=== PATIENT | female | born 1970 | race Caucasian/White ===

== ENCOUNTER → 2024-02-26 06:24 | Day surgery (SDC) | payer OTHER, SELFPAY | LOC: GI 06:24 | PROVIDERS: ATTENDING PHYSICIAN Internal Medicine Gastroenterology; FAMILY PHYSICIAN Nurse Practitioner Family | DX: K62.5 Hemorrhage of anus and rectum (principal); K64.9 Unspecified hemorrhoids; K57.30 Diverticulosis of large intestine without perforation or abscess without bleeding; K56.699 Other intestinal obstruction unspecified as to partial versus complete obstruction | CPT/HCPCS: 45378 ==

== ENCOUNTER → 2024-04-19 08:26 | Outpatient (REF) | payer OTHER, SELFPAY | LOC: HWRAD 08:26 | PROVIDERS: ATTENDING PHYSICIAN Internal Medicine Gastroenterology; FAMILY PHYSICIAN Nurse Practitioner Family | DX: Q43.8 Other specified congenital malformations of intestine (principal); K62.5 Hemorrhage of anus and rectum; K58.1 Irritable bowel syndrome with constipation | CPT/HCPCS: 74261 ==

== ENCOUNTER 2025-07-10 13:55 | Inpatient (IN) | payer OTHER, SELFPAY ==
[2025-07-10] VITALS (15 sets, daily range): BP systolic 121–174; BP diastolic 69–103; BMI 35.5; BMI 35.0
--- NOTE | 2025-07-10 04:50 | EDRN ---
Pt having pain middle of chest radiating into her back. Last time pt had this was mid April and her potassium was low and she was hospitalized in [place] for few days. Pt also has some numbness in her lips and extremities which also happened with
low potassium. Symptoms started Friday morning . Pt thinks she also had some symptoms on Wednesdays. Pt gets her zepbound injection on Wednesdays and remembers having similar symptoms and nausea however symptoms were not as bad as today. Pt
did not get her zepbound injection. Pt thought she might be dehydrated so she drank water yesterday and felt better. Symptoms got worse last night after a late dinner at [employer]. Pt says the intensity 'is just so bad, it hurts, I can't sit or lay.'
'it feels like there is something inside me that is pushing out my lower chest area and out my back.' Nausea, no vomiting. No fever/chills/cough urinary symptoms. Pt has epigastric pain. No diarrhea/constipation. Pt has weakness and dizziness.
[2025-07-10 05:18] LABS: Hematocrit 35.0 % (37.0-47.0); Hemoglobin 12.1 g/dL (12.0-16.0); Mean Corp Hgb Conc. 34.6 g/dL (33.0-37.0); Mean Corpuscular Volume 81.8 fL (81.0-99.0); Nucleated Red Blood Cells % 0 %; Platelet Count 333 10^3/uL (130-400); Red Cell Dist. Width 12.6 % (11.5-14.5)
[2025-07-10 05:43] LABS: ALT (SGPT) 15 U/L (0-35); AST (SGOT) 21 U/L (14-36); Albumin 4.3 g/dl (3.5-5.0); Alkaline Phosphatase 73 U/L (38-126); Blood Urea Nitrogen 7 mg/dl (7-17); Calcium 9.5 mg/dl (8.4-10.2); Carbon Dioxide 30 mmol/L (22-30); Chloride 100 mmol/L (98-107); Estimated Creatinine Clearance 118 ml/min; Glucose 125 mg/dl (70-99); Lipase 141 U/L (23-300); Magnesium 1.9 mg/dl (1.6-2.3); Potassium 2.9 mmol/L (3.5-5.1); Sodium 137 mmol/L (135-145); Total Protein 7.9 g/dl (6.3-8.2); eGFR > 60.00
[2025-07-10 05:53] LABS: Troponin I < 0.012 ng/ml
--- NOTE | 2025-07-10 06:18 | ED.GENMED ---
History of Present Illness
General
Chief Complaint: Numbness
Source: patient
Exam Limitations: none
Time Seen by Provider: 07/10/25 06:08
Nursing documentation reviewed up to this point in time: agreed with
History of Present Illness
History of Present Illness:
Note:
CHIEF COMPLAINT(S)
Severe tingling and pain radiating through body, numbness in face, extremities, and chest, historically associated with low potassium levels.
HISTORY OF PRESENT ILLNESS
The patient is a 55-year-old female presenting with severe tingling sensations in her feet, likened to the sensation experienced from electrical stimulation at a chiropractor. She reports radiating pain from her chest to her back, numbness in her
face, and extremities. She notes that this episode mimics a previous occurrence approximately two months ago when she was hospitalized at [facility] for hypokalemia (low potassium), which was reportedly around 2.9 mEq/L. During that
hospitalization, an initial electrocardiogram (EKG) showed a pause in heart rhythm, leading to her wearing a Holter monitor, though no further cardiac abnormalities were identified. In the past episode, potassium replacement intravenously
significantly alleviated her symptoms. The current symptoms evoke similar characteristics, and she reports her history of tingling sensations, chest pain, and associated numbness. Upon presentation, she describes eating and drinking normally but
expresses concern over these recurrent symptoms.
EXTERNAL RECORDS REVIEWED
The patient recalls her previous admission to [facility] for hypokalemia with an EKG abnormality that required further monitoring.
PHYSICAL EXAM
General: Alert, no acute distress.
Skin: Warm, dry.
Head: Normocephalic, atraumatic.
Neck: Supple, trachea midline.
Eye/Ears/Nose/Mouth/Throat: Oral mucosa moist.
Cardiovascular: Normal peripheral perfusion, No edema.
Respiratory: Respirations are non-labored.
Gastrointestinal: Abdomen nondistended.
Back: Normal range of motion, normal alignment.
Musculoskeletal: Normal range of motion, normal strength.
Neurological: Alert and oriented to person, place, time, and situation, No focal neurological deficit observed.
Psychiatric: Cooperative, appropriate mood and affect.
PLAN
1. Administer intravenous and oral potassium to correct hypokalemia promptly.
2. Monitor the patients potassium levels closely.
3. Perform an ultrasound as part of the diagnostic workup.
4. Educate the patient on the importance of monitoring and managing potassium levels.
DIFFERENTIAL DIAGNOSIS
The Differential Diagnosis includes, in no particular order and is not limited to:
1. Hypokalemia
2. Electrolyte imbalance
3. Cardiac arrhythmia
4. Peripheral neuropathy
5. Hypothyroidism
6. Anxiety or panic disorder
7. Multiple sclerosis
8. Hypocalcemia
9. Vitamin B12 deficiency
10. Myasthenia gravis
EKG
My independent EKG interpretation is:
- Rhythm: Sinus bradycardia
- Heart Rate: 85 beats per minute
- Notable Findings: Left ventricular hypertrophy (LVH)
- DC Interval: Not prolonged (non-DC)
- QRS Duration: Normal
- QT Interval: Normal
- Additional Observations: No ischemia observed
CARE-UPDATE
07/10/25 - 07:17
Patient remains symptomatic with epigastric pain; hypokalemia management initiated with both oral and IV potassium repletion. Awaiting formal radiology interpretation of the ultrasound to rule out any underlying acute changes. Decision made to admit
patient to hospitalist care for symptomatic management of hypokalemia.
Disposition:
SUMMARY OF ENCOUNTER
The patient presented to the emergency department with severe tingling sensations, pain radiating through the body, and numbness in the face, extremities, and chest. These symptoms were historically linked to low potassium levels, and the patient
had a similar hypokalemic episode two months ago. In the ED, hypokalemia management was initiated with intravenous and oral potassium repletion. The decision was made to admit the patient to hospice care for the management of symptomatic hypokalemia.
DISPOSITION
Admit to hospital for symptomatic management of hypokalemia.
ASSESSMENT
Hypokalemia with recurrent symptoms including severe tingling, pain, and numbness likely due to low potassium levels similar to previous episodes.
EMERGENCY TREATMENTS ADMINISTERED
- Intravenous potassium repletion
- Oral potassium supplementation
PLAN
1. Continue monitoring potassium levels closely.
2. Further evaluation by performing an ultrasound.
3. Educate the patient on the importance of maintaining adequate potassium levels and recognizing symptoms of hypokalemia for early intervention.
INDEPENDENT REVIEW OF LABS AND INTERPRETATION OF TESTS
My independent EKG interpretation is:
- Rhythm: Sinus bradycardia
- Heart Rate: 85 beats per minute
- Notable Findings: Left ventricular hypertrophy (LVH)
- DC Interval: Not prolonged
- QRS Duration: Normal
- QT Interval: Normal
- Additional Observations: No ischemia observed
MEDICATION RECONCILIATION
- Intravenous potassium
- Oral potassium supplements
MEDICAL DECISION MAKING
-Complexity of Data Reviewed: Chronic conditions affecting care including low potassium levels. Differential Diagnosis includes hypokalemia, electrolyte imbalance, cardiac arrhythmia, peripheral neuropathy, hypothyroidism, anxiety disorder, multiple
sclerosis, hypocalcemia, vitamin B12 deficiency, myasthenia gravis.
-Data:
Category 1
- Non-emergency department records reviewed: Previous hospitalization records from [facility] were reviewed for hypokalemia with EKG abnormalities.
Category 2
- My independent interpretation of EKG indicates sinus bradycardia and LVH.
-Risk:
Due to the critical nature of hypokalemia and associated symptoms, in-hospital monitoring with potassium repletion was deemed necessary to prevent complications and ensure safe and effective management.
DIAGNOSIS
1. Hypokalemia [E87.6]
2. 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
Past History
Past History
ED Past Medical History: Asthma and Fibromyalgia
Social History
Tobacco: Non-smoker
Living: with family
Employment: Employed
Phy Exam
Physical Exam
Physical Exam:
.
Course
Orders/Labs/Results
Orders:
Orders
07/10/25 04:43
Electrocardiogram (*1) Urgent
Reason for Study: Other
Other Reason for Exam: numbness
EKG- Treatment ONCE
07/10/25 05:05
Complete Blood Count/With Diff Urgent
Comprehensive Metabolic Panel Urgent
Lipase Urgent
Magnesium Urgent
Troponin I Urgent
07/10/25 06:17
Potassium Chloride 10% Elixir [KCl Elixir] 40 meq PO NOW STA
US Abdomen Complete/Upper Urgent
Comment:
Reason For Exam: epigastric pain
07/10/25 06:27
Potassium Chloride [KCl] 40 meq 0.9% Sodium Chloride 250 ml [Nss] 250 ml IV NOW
07/10/25 07:16
Ondansetron Injectable [Zofran] 4 mg .ROUTE .STK-MED ONE
Ondansetron Injectable [Zofran] 4 mg IV NOW STA
07/10/25 07:26
Morphine Sulfate 4 mg IV NOW STA
07/10/25 08:36
Admit/Transfer Patient As Directed
Co-Sign Provider:
Level of Care: Observation services
Assign to:: Telemetry
Physician / Group: brian montes
Diagnosis: Hypokalemia
Reason for Telemetry: Other
Other Reason for Telemetry: Hypokalemia
Date to Stop Telemetry: 07/12/25
Time to Stop Telemetry: 11:00
PRN Pain Medication Management As Directed
May give lesser potent ordered pain med per pt: Yes
preference::
Protocol:: Medication orders for pain may be administered in a
manner that supports deferring to patient preference
when the pt is:
- Requesting an ordered lesser potent pain medication.
Least to most potent pain medications are defined
as: acetaminophen < NSAID < tramadol < opioids
(morphine, oxycodone, hydromorphone).
- Requesting a lesser dose of the same medication IF
ORDERED.
- Requesting a less intrusive route of administration
if both routes are prescribed by the provider (PO <
IV).
07/10/25 08:38
Code Status As Directed
Resuscitation Status: Full Code
07/10/25 08:51
Ketorolac [Toradol] 30 mg IV Q6HPRN PRN
Morphine Sulfate 4 mg IV Q4HPRN PRN
07/12/25 11:00
DC Protocol for Telemetry ONCE
Abnormal Lab Results
07/10/25
05:05
Hct 35.0 L %
(37.0-47.0)
Potassium 2.9 L mmol/L
(3.5-5.1)
Glucose 125 H mg/dl
(70-99)
07/10/25 05:05
07/10/25 05:05
Vital Signs
Initial and Last Documented VS:
Initial Vital Signs
Temp Pulse Resp BP Pulse Ox
97.9 F 74 18 174/103 100
07/10/25 04:37 07/10/25 04:37 07/10/25 04:37 07/10/25 04:37 07/10/25 04:37
Last Documented Vital Signs
Temp Pulse Resp BP Pulse Ox
97.9 F 76 21 156/84 97
07/10/25 04:37 07/10/25 07:39 07/10/25 07:39 07/10/25 07:39 07/10/25 07:39
*Pulse Oximetry
SaO2: 100
Oxygen Mode of Delivery: Room air
Patient hypoxic: no
*Critical Care Note
Total Time (30-74mins, 75-104mins- exclusive of procedures): Not Applicable
Update Note
Update Note:
Pt with distended GB, cholelithiasis. Asked Dr. Miller to evaluate.
ED Attending Note
-
Portions of this chart may have been created with voice recognition software.� Occasional wrong word or��sound alike� substitutions may have occurred due to the inherent limitations of voice recognition software.
Discharge Plan
Departure
Patient Disposition: Admit
Date of Disposition: 07/10/25
Time of Disposition: 07:05
Admit to: Med/Surg
Presentation/result/management discussed w/ accepting MD/DO: Hospitalist
Patient with high blood pressure during this ER visit?: Yes
Condition: Good
Discharge Problem:
Acute hypokalemia, Paresthesia
Interventions
Interventions:
*Risk Screen - Suicide Last Done: 07/10/25 04:37
*General Assessment Last Done: 07/10/25 04:37
*Neglect/Abuse Screening Last Done: 07/10/25 04:37
*ED- Fall Risk Assessment Last Done: 07/10/25 05:09
ED- Neurological Assessment Last Done: 07/10/25 05:09
--- NOTE | 2025-07-10 06:19 | EDRN ---
Called pharmacy for iv potassium
[2025-07-10] MEDS: KCL ELIXIR 40 MEQ PO (06:26)
[2025-07-10] MEDS: ZOFRAN 4 MG IV (07:19)
[2025-07-10] MEDS: KCL 270 MEQ IV (07:24)
[2025-07-10] MEDS: MORPHINE SULFATE 4 MG IV ×2 (07:28→10:04)
--- NOTE | 2025-07-10 07:44 | HPS.HSE ---
Family Physician
-
Family Physician: Loren Barksdale PA-C
Chief Complaint
-
Abdominal pain
History of Present Illness
Patient is 55 years old with history of hypertension who came to the ER today with epigastric pain, numbness, associated with tingling in her feet, similar to previous event when she was having hypokalemia with potassium level of 2.9 and admitted to
[facility], initial blood work in the ER shows potassium level of 2.9.
Patient was started on IV potassium infusion and tingling improved but still complaining of epigastric pain, ultrasound abdomen shows distended gallbladder with cholelithiasis, lipase normal, epigastric pain radiates to the back and upper chest, CT
abdomen pelvis done which shows moderate to severe distended gallbladder, surgery team consulted.
Patient denies any recent fever or chills, admitted have nausea and vomiting in the ER, no chest pain or shortness of breath.
Patient will be admitted under hospitalist service.
Medical History
Past Medical History
Past Medical History: Reports Asthma, HTN and Other
Additional Past Medical History:
Fibromyalgia
Past Surgical History: Reports Other
Additional Past Surgical History:
colonoscopy
Social History
Tobacco: Non-smoker
Living: With Family
Employment: Employed
Family History
Family History: Not pertinent
Allergies / Home Medications
Allergies reflects when Allergies were last updated in [facility].
Home Medications with original date entered in [facility]
Allergy/Medication List:
Allergies
Allergy/AdvReac Type Severity Reaction Status Date / Time
clarithromycin (From Biaxin) Allergy Intermediate Swelling Verified 07/10/25 04:37
bee pollen Allergy Swelling Verified 07/10/25 04:37
chlorhexidine gluconate Allergy Rash Verified 07/10/25 04:37
(From Hibiclens)
clindamycin Allergy Rash Verified 07/10/25 04:37
ketoconazole (From Nizoral) Allergy Rash Verified 07/10/25 04:37
nystatin Allergy Rash Verified 07/10/25 04:37
seasonal Allergy Shortness Uncoded 11/25/16 13:38
of Breath
Home Medications
L.acid,brev,bulg,casei,parac,plan,saliv-B.anim 20 billion cell capsule (Probiotic-10) 1 cap PO DAILY 07/10/25
cholecalciferol (vitamin D3) 25 mcg (1,000 unit) capsule (Vitamin D3) 25 mcg PO DAILY 07/10/25
hydrochlorothiazide 25 mg tablet 25 mg PO DAILY 07/10/25
losartan 25 mg tablet 25 mg PO DAILY 07/10/25
multivitamin 1 tab PO DAILY 07/10/25
potassium 99 mg tablet 99 mg PO DAILY 07/10/25
tirzepatide (weight loss) 12.5 mg/0.5 mL subcutaneous pen injector (Zepbound) 12.5 mg SC QWEEK 07/10/25
Review of Systems
-
A 12 point ROS was completed and negative except as noted: Yes
Constitutional: Denies Fever, Weight Gain, Weight Loss, Fatigue or Sleep Disturbance
EENT: Denies Tearing, Sore Throat, Mouth Pain, Mouth Swelling or Runny Nose
Respiratory: Denies Cough, Hemoptysis or Trouble Breathing
Cardiac: Denies Chest Pain, Diaphoresis, Palpitations or Syncope
Abdomen/GI: Denies Abdominal Pain, Nausea, Vomiting, Diarrhea, Constipated, Bloody Stools or Black Stools
: Denies Dysuria, Frequency, Flank Pain, Incontinence, Difficulty Voiding, Urgency, Bleeding or Dark Urine
Musculoskeletal: Denies Joint Pain, Joint Swelling, Muscle Pain, Muscle Stiffness or Edema
Skin: Denies Itching or Rash
Neurological: Denies Dizzy, Headache, Weakness or Numbness
Endocrine: Denies Polyuria, Polydipsia or Temp Intolerance
Hematologic/Lymphatic: Denies Bleeding, Swollen Glands or Bruising
Psych: Reports Calm; Denies Depression, Anxiety or Panic Disorder
Physical Exam
Vital Signs
Vital Signs
Temp Pulse Resp BP Pulse Ox
97.9 F 76 21 156/84 97
07/10/25 04:37 07/10/25 07:39 07/10/25 07:39 07/10/25 07:39 07/10/25 07:39
Physical Exam
General: Well Developed, Well Nourished, No Apparent Distress, Comfortable and Good Appetite; No Pain, Chills or Sweats
HEENT: NormoCephalic, Moist mucous membranes, Atraumatic, Good Dentition, PERRLA, Nose Appears Normal and Ears Appear Normal
Respiratory: Clear
Cardiac: S1/S2 and Regular Rhythm
Breast: Deferred by me
GI: Soft, Non Distended, Normal Bowel Sounds and Tender (Gastric tenderness.)
Genito-urinary: Deferred by me
Musculoskeletal: No Clubbing, No Cyanosis and No Edema
Skin: Warm; No Rash, Jaundice, Ulcers, Lesions or Decubitus Ulcers
Neuro: Awake, Alert, Oriented, AO x 3, No Motor Deficits, Nonfocal/grossly intact and Cranial Nerves Intact
Hematologic/Lymphatic: No Lymphadenopathy
Psych: Calm
Laboratory Results
-
07/10/25 05:05
07/10/25 05:05
Laboratory Results
Total Bilirubin 0.6 mg/dl (0.2-1.3) 07/10/25 05:05
AST 21 U/L (14-36) 07/10/25 05:05
ALT 15 U/L (0-35) 07/10/25 05:05
Alkaline Phosphatase 73 U/L (38-126) 07/10/25 05:05
Troponin I < 0.012 ng/ml 07/10/25 05:05
Lipase 141 U/L (23-300) 07/10/25 05:05
Data Reviewed
-
Diagnostic Radiology: Report Reviewed by me
CT Scan: Report Reviewed by me
Medical Tests (Nuc Med, Echo, EKG etc): Report Reviewed by me
Lab Data: Labs Reviewed by me
Old Records: Reviewed
Impression/Plan
-
Impression:
Patient is 55 years old with history of hypertension who came to the ER today with epigastric pain, numbness, associated with tingling in her feet, similar to previous event when she was having hypokalemia with potassium level of 2.9 and admitted to
[facility], initial blood work in the ER shows potassium level of 2.9.
Patient was started on IV potassium infusion and tingling improved but still complaining of epigastric pain, ultrasound abdomen shows distended gallbladder with cholelithiasis, lipase normal, epigastric pain radiates to the back and upper chest, CT
abdomen pelvis done which shows moderate to severe distended gallbladder, surgery team consulted.
Assessment/plan:
Epigastric pain.
Radiate to the back.
With ultrasound and CT scan findings shows severely distended gallbladder.
Also ultrasound shows cholelithiasis
Normal LFTs.
Normal lipase
Surgery team consulted.
IV fluid.
Clear liquid diet for now
Pain and nausea control
Hypokalemia
Replaced in the ER
Hold HTCZ
Continue to monitor
Essential hypertension
Hold hydrochlorothiazide
Continue losartan.
Add low-dose
CODE STATUS: Full code
DVT prophylaxis: Lovenox
Diet: Cardiac diet.
Disposition.
Surgery consult
Total time spent on today's encounter was 75 minutes which included time spent in counseling the patient/family regarding diagnosis and treatment plan as listed above, goals of care, and symptom management. Case was discussed with nursing staff,
specialists, and care coordinators/case management. All labs and imaging personally reviewed by me. Remainder the time spent in detailed review of previous records, lab data, imaging, and other medical provider documentation.
--- NOTE | 2025-07-10 09:16 | CM ---
CM reviewed chart and met with pt bedside in ED. Lives with her and son in 2 story home, [address]. Has first floor half BA, full flight to second floor BR/full BA.
Independent in ADLs, personal care and ambulation at baseline. No assistive devices, no DME
No hx VN or SNF
OBS form reviewed and signed.
PCP: Loren Barksdale
Pharmacy: [facility] [address] [place] [address]
Anticipate discharge home, CM will continue to follow.
[2025-07-10] MEDS: BENADRYL 25 MG IV (10:04)
[2025-07-10] MEDS: PROTONIX IV 40 MG IV (10:04)
[2025-07-10] MEDS: NSS (PRESERVATIVE FREE) 10 ML IV (10:04)
--- NOTE | 2025-07-10 10:20 | EDRN ---
Patient went for a CT with IV contrast. Patient came back with hives on her face. Patient denies chest pain and SOB. Lung sounds are clear and VSS are stable. Dr. Israel and hospitalist made aware.
[2025-07-10] MEDS: DECADRON 4 MG IV (10:32)
[2025-07-10] MEDS: TORADOL 30 MG IV (12:36)
--- NOTE | 2025-07-10 12:37 | CON.GS ---
Addendum entered and electronically signed by Delmer Miller MD 07/10/25 13:07:
I saw and examined the patient.
The APPLICATION SUPPORT's note was reviewed and I agree with the note.
Comment: recurrent abd pain with radiation to back. denies changes to stool/urine. zepbound. concurrent recurrent symptomatic hypokalemia. LFTs WNL. No leukocytosis. Imaging c/w acute biliary colic with stones. Plan for CCY when K normalized. Added
on for tomorrow. NPO @ MN
Original Note:
Consultation
-
Date/Time Consultation Performed: 07/10/25 1145
Medical History
-
Chief Complaint: epigastric pain
History of Present Illness:
55 yo female with a h/o obesity on Zepbound x8 month with about 50lb weight loss and who presents through the ED with epigastric pain with nausea and vomiting with numbness and tingling to her face and lower extremities. She reports the
pain begins in the front of her abdomen and radiates into her back. She has had intermittent episodes of similar pain over the past few months although much more mild and quick to resolve. This episode began on Friday with nausea and vomiting
which initially improved but returned yesterday and was more severe. Today, she began to have numbness and tingling ascending up her face which was similar to an episode 2 months ago where she presented to [facility] and was admitted for
correction of potassium. This sensation is resolving with administration of potassium riders, but the abdominal discomfort persists. She denies n/v currently. She denies fevers or chills. She reports generally feeling unwell. She does note
intermittent constipation since starting Zepbound and this is unchanged. On exam, there is marked tenderness to the right abdomen.
Past Medical History
Past Medical History: HTN and Other (Obesity on Zepbound, fibromyalgia)
Past Surgical History: and Other (colonoscopy 02/26/24: diverticulosis )
Social History
Tobacco: Non-Smoker
Living: With Family
Family History
Family History: Reviewed & Not Pertinent
Allergies / Home Medications
Allergy/AdvReac Type Severity Reaction Status Date / Time
clarithromycin (From Biaxin) Allergy Intermediate Swelling Verified 07/10/25 04:37
bee pollen Allergy Swelling Verified 07/10/25 04:37
chlorhexidine gluconate Allergy Rash Verified 07/10/25 04:37
(From Hibiclens)
clindamycin Allergy Rash Verified 07/10/25 04:37
Iodinated Contrast Media Allergy Hives Verified 07/10/25 10:20
ketoconazole (From Nizoral) Allergy Rash Verified 07/10/25 04:37
nystatin Allergy Rash Verified 07/10/25 04:37
seasonal Allergy Shortness Uncoded 11/25/16 13:38
of Breath
�Medication �Instructions �Recorded �Confirmed �Type
Lactobac no.2-Bifidobac no.1-S. 1 cap PO DAILY 07/10/25 07/10/25 History
thermo 112.5 billion cell capsule
(Visbiome)
acetaminophen 500 mg tablet 1,000 mg PO DAILYPRN PRN mild pain 07/10/25 07/10/25 History
cholecalciferol (vitamin D3) 25 25 mcg PO DAILY 07/10/25 07/10/25 History
mcg (1,000 unit) capsule (Vitamin
D3)
hydrochlorothiazide 25 mg tablet 25 mg PO DAILY 07/10/25 07/10/25 History
losartan 25 mg tablet 25 mg PO DAILY 07/10/25 07/10/25 History
potassium gluconate 600 mg (99 mg) 600 mg PO DAILY 07/10/25 07/10/25 History
tablet
therapeutic multivitamin 1 tab PO DAILY 07/10/25 07/10/25 History
tirzepatide (weight loss) 12.5 12.5 mg SC WE 07/10/25 07/10/25 History
mg/0.5 mL subcutaneous pen
injector (Zepbound)
Review of Systems
-
History Source: Patient and Family
All other systems: Negative unless noted
A 10 point review of systems was completed, and was negative except as per HPI.
Physical Exam
Vital Signs
Temp Pulse Resp BP Pulse Ox
98.3 F 78 17 158/82 100
07/10/25 10:11 07/10/25 10:11 07/10/25 10:11 07/10/25 10:11 07/10/25 10:11
07/09/25 07/10/25 07/11/25
06:59 06:59 06:59
Actual Weight 106 kg
Body Mass Index (BMI) 35.5
Lab Results
07/10/25 05:05
WBC 7.1 10^3/uL (4.8-10.8) 07/10/25 05:05
Hgb 12.1 g/dL (12.0-16.0) 07/10/25 05:05
Hct 35.0 % (37.0-47.0) L 07/10/25 05:05
Plt Count 333 10^3/uL (130-400) 07/10/25 05:05
Abs Immat Gran (auto) 0.0 10^3/uL (0-0.05) 07/10/25 05:05
Neutrophils % 57.5 % (42.2-75.2) 07/10/25 05:05
Physical Exam
General: Well Developed; Negative Comfortable
HEENT: Normocephalic; Negative Scleral Icterus
Respiratory: Non Labored Respirations
GI: Soft, Non Distended, Tender (right abdomen) and Obese
Skin: Warm and Dry
Neuro: Awake, Alert and AO x 3
Psych: Calm
Data Reviewed
-
CT Scan: Image Personally Visualized and interpreted, Report Reviewed by me, Discussed with Physician, Discussed with Patient and Discussed with Family
Ultrasound: Image Personally Visualized and interpreted, Report Reviewed by me, Discussed with Physician and Discussed with Patient
Labs: Labs Reviewed by me, Discussed with Physician, Discussed with Patient and Discussed with Family
Old Records: Reviewed
Assessment / Plan
-
55 yo female on Zepbound x8 month with about 50lb weight lbs with intermittent biliary colic symptoms presenting with persistent epigastric pain with severe right abd tenderness as well as intermittent n/v. No leukocytosis present. LFTs WNL. Severe
hypokalemia present, symptomatic with tingling sensation in extremities/face but improving with k-riders. Afebrile. Stable vital signs. Cholelithiasis present on US with gallbladder distention noted. CT confirms these findings, nl appearing
appendix. Significant tenderness present to the right abdomen which is concerning for developing acute calculous cholecystitis.
Plan:
Ok for clears today, NPO after MN
OR tomorrow for lap jorge
Correct potassium, will check mag and k later today. Will need to correct hypokalemia prior to receiving anesthesia.
Start IV Zosyn for empiric abx coverage of cholecystitis
Analgesics/antiemetics
Medical management as per primary team
[2025-07-10] MEDS: COZAAR 25 MG PO (13:14)
[2025-07-10] MEDS: NORVASC 5 MG PO (13:15)
[2025-07-10] MEDS: VISBIOME 1 CAP PO (13:15)
[2025-07-10] MEDS: ZOSYN 50 IV ×3 (13:15→23:02)
--- NOTE | 2025-07-10 14:00 | PTCARENOTE ---
07/10- Patient transferred and oriented to unit without issue. AAOX3, Teley currently NSR. Pt c/o generalized malaise feeling, loss of appetite but current abdominal pain is 5/10. She understands her pain management medications but currently
denies need for them. No other current complaints.
[2025-07-10] MEDS: NSS 1000 IV ×2 (14:12→23:02)
[2025-07-10] MEDS: LOVENOX 40 MG SC (17:02)
[2025-07-10 21:08] LABS: Blood Urea Nitrogen 7 mg/dl (7-17); Calcium 9.1 mg/dl (8.4-10.2); Carbon Dioxide 28 mmol/L (22-30); Chloride 105 mmol/L (98-107); Estimated Creatinine Clearance 118 ml/min; Glucose 137 mg/dl (70-99); Potassium 4.0 mmol/L (3.5-5.1); Sodium 140 mmol/L (135-145); eGFR > 60.00
[2025-07-11] VITALS (14 sets, daily range): BP systolic 99–137; BP diastolic 52–73
[2025-07-11] MEDS: ZOSYN 50 IV ×3 (05:02→23:05)
[2025-07-11] MEDS: MORPHINE SULFATE 4 MG IV ×3 (06:04→21:44)
[2025-07-11 06:07] LABS: Hematocrit 36.2 % (37.0-47.0); Hemoglobin 12.3 g/dL (12.0-16.0); Mean Corp Hgb Conc. 34.0 g/dL (33.0-37.0); Mean Corpuscular Volume 83.0 fL (81.0-99.0); Platelet Count 337 10^3/uL (130-400); Red Cell Dist. Width 13.0 % (11.5-14.5)
[2025-07-11 06:31] LABS: Estimated Creatinine Clearance > 125 ml/min; eGFR > 60.00
[2025-07-11 06:44] LABS: Blood Urea Nitrogen 5 mg/dl (7-17); Calcium 9.0 mg/dl (8.4-10.2); Carbon Dioxide 27 mmol/L (22-30); Chloride 107 mmol/L (98-107); Glucose 118 mg/dl (70-99); Magnesium 2.0 mg/dl (1.6-2.3); Potassium 4.0 mmol/L (3.5-5.1); Sodium 141 mmol/L (135-145)
[2025-07-11] MEDS: COZAAR 25 MG PO (07:06)
[2025-07-11] MEDS: THERAGRAN 1 TABLET PO (07:06)
[2025-07-11] MEDS: VISBIOME 1 CAP PO (07:06)
[2025-07-11] MEDS: NORVASC 5 MG PO (07:06)
[2025-07-11] MEDS: VITAMIN D3 (cholecalciferol) 25 MCG PO (07:06)
[2025-07-11 07:12] LABS: Lipase 75 U/L (23-300)
--- NOTE | 2025-07-11 07:18 | W.PN.HOSP.TC ---
Today's Communication/Plan
-
Lap jorge today
Monitor overnight
Plan for discharge tomorrow
Assessment / Plan
Assessment / Plan
Physical Exam
General: Not in acute distress
HEENT: Normocephalic, Moist mucous membranes
Respiratory: Clear to Auscultation Bilaterally
Cardiac: S1/S2 and Regular Rhythm
GI: Soft, Non Distended, Normal Bowel Sounds and Tender (Epigastric tenderness)
Musculoskeletal: No Cyanosis and No Edema
Skin: Warm. Dry.
Neuro: Awake, Alert, Oriented, AO x 3, No Motor Deficits, Nonfocal/grossly intact and Cranial Nerves Intact
Psych: Calm
Assessment/Plan
55 years old female with past medical history of hypertension who came to the emergency room with epigastric pain, numbness, associated with tingling in her feet, similar to previous event when she was having hypokalemia with potassium level of 2.9
and admitted to [facility], initial blood work in the ER showed potassium level of 2.9. Patient was started on IV potassium infusion and tingling improved but she then still complained of epigastric pain, ultrasound abdomen showed distended
gallbladder with cholelithiasis, lipase normal, epigastric pain radiates to the back and upper chest, CT abdomen pelvis was done, showing moderate to severe distended gallbladder, surgery team consulted. Patient denied any recent fever or chills,
admitted to have nausea and vomiting in the ER, no chest pain or shortness of breath.
Epigastric pain.
Radiate to the back.
With ultrasound and CT scan findings shows severely distended gallbladder.
Also ultrasound shows cholelithiasis
Normal LFTs.
Normal lipase
Surgery team consulted.
IV fluid.
Surgery with lap jorge and liver biopsy on 07/11/25 -- solid diet as tolerated after the surgery
Pain and nausea control
Continue antibiotics perioperatively -- but can stop on discharge
Hypokalemia
Replaced in the ER
Hold HCTZ
Continue to monitor
Essential hypertension
Hold hydrochlorothiazide
Continue losartan.
Amlodipine
CODE STATUS: Full code
DVT prophylaxis: Lovenox
Diet: Cardiac diet.
Anticipated Discharge: Within 24 hours
Subjective/Interval History
-
Date of Service: July 11, 2025
Patient was seen and examined. She reported similar abdominal pain as before, denied any other new symptoms or complaints.
Objective Data
-
Labs:
Laboratory Results
07/10/25 07/11/25
20:41 05:18
WBC 10.1
Hgb 12.3
Hct 36.2 L
Plt Count 337
Sodium 140 141
Potassium 4.0 D 4.0
Chloride 105 107
Carbon Dioxide 28 27
BUN 7 5 L
Creatinine 0.7 0.6
Glucose 137 H 118 H
Calcium 9.1 9.0
Vital Signs:
Vital Signs
Temp Pulse Resp BP Pulse Ox
98.1 F 64 16 134/70 99
07/11/25 02:56 07/11/25 02:56 07/11/25 02:56 07/11/25 02:56 07/11/25 02:56
I&O
07/10/25 07/11/25 07/12/25
06:59 06:59 06:59
Intake Total 800 / 800
Balance 800 / 800
[2025-07-11 10:00] LABS: Urine Character Clear (Clear)
[2025-07-11 10:21] LABS: Urine Squamous Cell >30 /LPF (Few)
[2025-07-11 10:22] LABS: Urine Red Blood Cell 0-2 /HPF (0-2)
[2025-07-11] MEDS: NSS IV (11:54)
[2025-07-11] MEDS: ZOSYN IV (11:54)
--- NOTE | 2025-07-11 13:12 | W.SUR.PREOP ---
Pre-Operative Surgical Note
-
I have examined this patient prior to the performance of the scheduled procedure.
The patient's condition is unchanged from the time of the current History and
Physical and the patient is able to undergo the scheduled procedure.
--- NOTE | 2025-07-11 14:54 | W.IMMPOSTOP ---
Surgical Immed Post Op Note
-
Primary Surgeon: Dale Bhatia MD
Assisting Surgeon: None
Pre-op Diagnosis: Acute cholecystitis
Post-op Diagnosis: Gangrenous cholecystitis, choledocholithiasis, fatty liver disease
Procedure Performed:
1. Laparoscopic cholecystectomy with cholangiogram
2. Laparoscopic transcystic common bile duct exploration
3. Liver biopsy
Anesthesia Type: General
Specimen / Cultures:
1. Gallbladder and contents
2. Liver biopsy
Estimated Blood Loss: 23 cc
Complications: None
Operative Findings: Gangrenous distended gallbladder containing small cholesterol gallstones visualized but none spilled. After achieving a critical view of safety a intraoperative cholangiogram was performed which demonstrated a distal filling
defect which persisted after 1 mg of glucagon was administered so a transcystic common bile duct exploration was performed advancing the stone into the small intestine successfully. A completion cholangiogram showed resolution of the filling
defect. The liver appeared consistent with fatty liver disease and a associate financial representative liver biopsy was taken from segment 4B.
POST OP PLAN:
Imaging: None
Labs: Routine AM
Diet: Regular diet
Analgesia: Tylenol 650mg q6 Rayna, Dilaudid 0.5mg q2h PRN
Neuro/vascular checks: Per unit protocol
AC/AP: Hold Therapeutic AC, Ok for DVT PPx
Activity: Ad Sasha
Wound/Incisions/Drains: Routine
Abx: Continue antibiotics perioperatively, can stop on discharge.
Dispo: RNF, anticipate discharge home tomorrow
[2025-07-11] MEDS: DILAUDID 0.25 MG IV (15:37)
[2025-07-11] MEDS: LOVENOX SC (16:17)
--- NOTE | 2025-07-11 16:17 | PTCARENOTE ---
07/11- Patient returned to unit from OR without issue. 5 fully approximated lappy sites on abdomen. All Surrounding Skin CDI. Telemetry #45 reapplied- currently NSR. Patient currently c/o 04/26 sore abdominal pain. Administered PRN pain
medication as ordered.
[2025-07-11] MEDS: BENADRYL 25 MG PO (23:28)
[2025-07-12 03:09] VITALS: BP 108/52
[2025-07-12] MEDS: ZOSYN 50 IV ×4 (05:01→23:05)
[2025-07-12] MEDS: VISBIOME 1 CAP PO (07:50)
[2025-07-12] MEDS: VITAMIN D3 (cholecalciferol) 25 MCG PO (07:50)
[2025-07-12] MEDS: THERAGRAN 1 TABLET PO (07:50)
[2025-07-12] MEDS: NORVASC 5 MG PO (07:50)
[2025-07-12] MEDS: COZAAR 25 MG PO (07:50)
[2025-07-12 08:12] LABS: Hematocrit 32.0 % (37.0-47.0); Hemoglobin 10.7 g/dL (12.0-16.0); Mean Corp Hgb Conc. 33.4 g/dL (33.0-37.0); Mean Corpuscular Volume 85.8 fL (81.0-99.0); Nucleated Red Blood Cells % 0 %; Platelet Count 303 10^3/uL (130-400); Red Cell Dist. Width 13.4 % (11.5-14.5)
[2025-07-12 08:19] VITALS: BP 111/60
--- NOTE | 2025-07-12 08:31 | W.PN.GS2 ---
Today's Communication / Plan
-
Dispo planning
Assessment / Plan
-
This is a 55-year-old female postoperative day 1 from a laparoscopic cholecystectomy and LTCBDE for acute gangrenous cholecystitis, choledocholithiasis and fatty liver disease. Doing well, expected postoperative course.
Okay for DC this morning from a surgery perspective.
Discharge instructions updated, meds sent
Time Spent
Total Time Spent with Patient (in minutes): 10
Subjective Data
-
Date of Service: July 12, 2025
Interval Events:
No acute events overnight. Slept well. Pain Controlled. Denies Nausea/Vomiting. Tolerating diet.
Objective Data
-
Intake and Output
07/11/25 07/12/25 07/13/25
06:59 06:59 06:59
Intake Total 800 / 800 940 / 940
Balance 800 / 800 940 / 940
Intake:
Oral fluids 400 / 400 840 / 840
IV fluids (Total) 300 / 300 100 / 100
Normosal 100 / 100
IV piggybacks 100 / 100
Other:
Number of approximated MODERATE 1 3
amounts of urine
Vital Signs
Temp Pulse Resp BP Pulse Ox
98.6 F 61 16 111/60 100
07/12/25 08:19 07/12/25 08:19 07/12/25 08:19 07/12/25 08:19 07/12/25 08:19
Lab Results
07/12/25 07:06
Calcium 9.0 mg/dl (8.4-10.2) 07/11/25 05:18
Magnesium 2.0 mg/dl (1.6-2.3) 07/11/25 05:18
Total Bilirubin 0.6 mg/dl (0.2-1.3) 07/10/25 05:05
AST 21 U/L (14-36) 07/10/25 05:05
ALT 15 U/L (0-35) 07/10/25 05:05
Alkaline Phosphatase 73 U/L (38-126) 07/10/25 05:05
Total Protein 7.9 g/dl (6.3-8.2) 07/10/25 05:05
Albumin 4.3 g/dl (3.5-5.0) 07/10/25 05:05
Physical Exam
-
GENERAL/NEURO: Awake, Alert, no distress
CHEST: Unlabored breathing on RA
ABDOMEN: Soft, Non-Tender, Non-Distended, incisions clean dry and intact
Patient has a fuentes catheter: No
Patient has a central line: No
[2025-07-12 08:48] LABS: ALT (SGPT) 247 U/L (0-35); AST (SGOT) 176 U/L (14-36); Albumin 3.3 g/dl (3.5-5.0); Alkaline Phosphatase 181 U/L (38-126); Blood Urea Nitrogen 6 mg/dl (7-17); Calcium 8.7 mg/dl (8.4-10.2); Carbon Dioxide 29 mmol/L (22-30); Chloride 107 mmol/L (98-107); Estimated Creatinine Clearance 118 ml/min; Glucose 122 mg/dl (70-99); Magnesium 2.1 mg/dl (1.6-2.3); Potassium 4.0 mmol/L (3.5-5.1); Sodium 139 mmol/L (135-145); Total Protein 6.3 g/dl (6.3-8.2); eGFR > 60.00
--- NOTE | 2025-07-12 08:50 | PN.CDI ---
CDI
- -
CDI:
Physician Documentation Request
Admit Date: 07/10/25 13:55
Dear Doctor Sriram,
Patient admitted for cholecystitis.
07/11 Immediate post-op report: 'intraoperative cholangiogram was performed which demonstrated a distal filling defect which persisted after 1 mg of glucagon was administered so a transcystic common bile duct exploration was performed advancing the
stone into the small intestine successfully. A completion cholangiogram showed resolution of the filling defect.'
Based on the above, could you clarify in the progress notes, the appropriate diagnosis, if significant, that supports the above abnormalities and additional evaluation, monitoring and/or treatment rendered:
Common bile duct obstruction
Common bile duct filling defect
Other
Use of terms such as suspected, likely, concern for, or probable (associated with a specific diagnosis that is being evaluated, monitored, or treated as if it exists) are acceptable and can be coded in the inpatient setting, when documented at the
time of discharge.
Thank you,
Katelyn Street RN, BSN
CDI Specialist
Avilable via [place] text
Please use your independent medical judgment in providing your response.
--- NOTE | 2025-07-12 09:16 | OR.RPT ---
Operative Report
Operative Report
Patient Name: Ray Ray
: 03/19/1968
Date of Operation: 07/11/2025
Preoperative Diagnosis: Acute cholecystitis
Postoperative Diagnosis: Gangrenous cholecystitis, choledocholithiasis, fatty liver disease
Procedure(s):
1. Laparoscopic cholecystectomy with cholangiogram
2. Laparoscopic transcystic common bile duct exploration
3. Liver biopsy
Surgeon(s):
Dr. Bhatia
Marketing Communication Manager(s):
AL Velasquez
Anesthesia: General
Estimated Blood Loss: 23 cc
Urine Output: None
Drains/Lines/Implants:None
Specimens:
1. Gallbladder and contents
2. Liver biopsy
HPI/Surgical Indications:
This is a 55-year-old female with a history of obesity on Zepbound, who presents to the ED with epigastric pain nausea and vomiting and pain radiating to her back. Exam, labs and imaging are consistent with acute cholecystitis.
Risks/Benefits/Alternatives were discussed at length, and the patient agreed to proceed with surgery.
Operative Findings: Gangrenous distended gallbladder containing small cholesterol gallstones visualized but none spilled. After achieving a critical view of safety a intraoperative cholangiogram was performed which demonstrated a distal common bile
duct filling defect consistent with a gallstone. This common bile duct obstruction persisted after 1 mg of glucagon was administered so a transcystic common bile duct exploration was performed advancing the stone into the small intestine
successfully. A completion cholangiogram showed resolution of the filling defect. The liver appeared consistent with fatty liver disease and a lead generation representative liver biopsy was taken from segment 4B.
Procedure Description:
The patient was brought to the Operating Room and placed in the supine position with one arm tucked. Following uneventful induction of general endotracheal anesthesia, an orogastric tube was placed. The abdomen was prepped and draped in the usual
sterile fashion. A timeout was performed confirming the procedure, consent, and that IV antibiotics were infused and sequential compression devices were confirmed to be on. The abdomen was entered using a left subcostal Veress technique which
required a single pass followed by a 5 mm right upper quadrant Optiview trocar. Pneumoperitoneum to 15 mmHg pressure was obtained without difficulty and we confirmed that no injury had occurred during our entry. The patient was positioned in
reverse Trendelenberg and rotated with the right side up slightly. Two 5 mm trocars were then placed along the right subcostal margin, followed by a 12 mm port in the epigastrium. The gallbladder was distended and gangrenous so was emptied using a
decompressing needle through the fundus of the gallbladder with evacuation of hydrops before A locking grasping forceps was placed on the fundus of the gallbladder where it was then retracted cephalad and to the right. Using appropriate grasping
instruments, the peritoneum overlying the triangle of Calot was incised and extended superiorly on both the anterior and posterior gallbladder sullivan. The liver was quite large with the left lobe of the liver flopping over the cystic triangle which
made visualization somewhat difficult. The infundibulum was dissected off the cystic plate. The cystic triangle was dissected until a critical view of safety was achieved. The cystic artery was medialized, dissected and controlled with 2 proximal
clips and 1 distal. The cystic duct/gallbladder junction in turn was identified, dissected circumferentially and a clip was placed. A ductotomy was made and a cholangiocatheter on an Pierre clamp was inserted into the cystic duct. A C-arm was draped
and brought into the field. An intra-operative cholangiogram was performed and was noted to have:
A filling defect in the distal common bile duct which persisted after administration of 1 mg of glucagon and allowing 2 minutes for this to take effect. Under fluoroscopic guidance a laparoscopic transcystic common bile duct exploration was
performed by advancing the cholangiocatheter through the sphincter and dilating it. Using a 'snowplow' maneuver the stone was carefully advanced into the duodenum. A completion cholangiogram showed resolution of the filling defect/obstruction of
the common bile duct.
There was no significant biliary dilation
Brisk flow of contrast into the duodenum on completion cholangiogram
Normal biliary anatomy
The catheter was then removed and the cystic duct was controlled with a clip followed by 0 PDS Endoloop. After ensuring both the artery and duct were divided, the gallbladder was freed from the liver using electrocautery. There was some spillage
of bile, but no spillage of stones. The gallbladder bed was inspected and excellent hemostasis was obtained. The gallbladder was extracted through the 12 mm trocar site using an endocatch bag. The abdomen was again irrigated and excellent
hemostasis was assured. All remaining trocars were then removed and the pneumoperitoneum was evacuated. The 12 mm trocar site was closed using 0 PDS suture. All trocar sites were closed at the skin level using 4-0 Monocryl followed by Dermabond.
Overall, the patient tolerated the procedure well and was taken to the Recovery Room postoperatively in stable condition.
I was the attending physician and performed the procedure with assistance from the WELDING MACHINE SETTER above. I was present for all portions of the case, excluding skin closure.
Dale Bhatia MD
--- NOTE | 2025-07-12 11:03 | W.PN.HOSP.TC ---
Today's Communication/Plan
-
Cannot discharge patient today as patient has new abdominal pain and new AST/ALT/Bilirubin/ALP elevation
I spoke to surgeon who confirmed that patient should not be discharged today
Follow-up on the serum lipase level --> if lipase is high, and in the setting of abdominal pain, will need to make patient N.P.O. and start IV fluids
Recheck CMP tomorrow
Assessment / Plan
Assessment / Plan
Physical Exam
General: Not in acute distress
HEENT: Normocephalic, Moist mucous membranes
Respiratory: Clear to Auscultation Bilaterally
Cardiac: S1/S2 and Regular Rhythm
GI: Soft, Non Distended, Normal Bowel Sounds and Tender (Epigastric and bilateral central abdominal tenderness)
Musculoskeletal: No Cyanosis and No Edema
Skin: Warm. Dry.
Neuro: Awake, Alert, Oriented, AO x 3, No Motor Deficits, Nonfocal/grossly intact and Cranial Nerves Intact
Psych: Calm
Assessment/Plan
55 years old female with past medical history of hypertension who came to the emergency room with epigastric pain, numbness, associated with tingling in her feet, similar to previous event when she was having hypokalemia with potassium level of 2.9
and admitted to [facility], initial blood work in the ER showed potassium level of 2.9. Patient was started on IV potassium infusion and tingling improved but she then still complained of epigastric pain, ultrasound abdomen showed distended
gallbladder with cholelithiasis, lipase normal, epigastric pain radiates to the back and upper chest, CT abdomen pelvis was done, showing moderate to severe distended gallbladder, surgery team consulted. Patient denied any recent fever or chills,
admitted to have nausea and vomiting in the ER, no chest pain or shortness of breath.
Epigastric pain.
Cholelithiasis and Severely Distended Gallbladder
Radiate to the back.
With ultrasound and CT scan findings showed severely distended gallbladder.
Also ultrasound showed cholelithiasis
Normal LFTs.
Normal lipase
Surgery team consulted.
IV fluid.
Surgery with lap jorge and liver biopsy on 07/11/25 -- solid diet as tolerated after the surgery
0New Abdominal Pain, bilateral central abdomen on 07/12/25 -- residual effects from lap jorge versus other such as pancreatitis
-Given the above, check Lipase to make sure not pancreatitis
-Discussed above new abdominal pain with surgeon, okay to continue current diet, recheck labs tomorrow (see below)
Pain and nausea control
Continue antibiotics perioperatively -- but can stop on discharge
Hyperbilirubinemia
High AST
High ALT
High ALP
-Could be transient, post-op lap jorge related
-Check lipase to make sure no pancreatitis
-Discussed with Dr. Bhatia (surgeon) and he confirmed patient should not be discharge today
-Okay to continue diet as per my discussion with surgeon
-Recheck labs tomorrow
-If labs an symptoms not improving will also need to consult GI tomorrow
Hypokalemia - RESOLVED
Previously replaced
Hold HCTZ
Continue to monitor
Essential hypertension
Blood pressure is normal post-op
Hold hydrochlorothiazide
Continue losartan.
Amlodipine
CODE STATUS: Full code
DVT prophylaxis: Lovenox
Diet: Cardiac diet.
Anticipated Discharge: Within 24 hours
Subjective/Interval History
-
Date of Service: July 12, 2025
Patient was seen and examined. She reported abdominal pain around the central bilateral portion of her abdomen, she says she is tolerating her diet well.
Objective Data
-
Labs:
Laboratory Results
07/12/25
07:06
WBC 11.2 H
Hgb 10.7 L
Hct 32.0 L
Plt Count 303
Sodium 139
Potassium 4.0
Chloride 107
Carbon Dioxide 29
BUN 6 L
Creatinine 0.7
Glucose 122 H
Calcium 8.7
Total Bilirubin 2.5 H D
AST 176 H
ALT 247 H
Alkaline Phosphatase 181 H
Vital Signs:
Vital Signs
Temp Pulse Resp BP Pulse Ox
98.6 F 61 16 111/60 100
07/12/25 08:19 07/12/25 08:19 07/12/25 08:19 07/12/25 08:19 07/12/25 08:19
I&O
07/11/25 07/12/25 07/13/25
06:59 06:59 06:59
Intake Total 800 / 800 940 / 940
Balance 800 / 800 940 / 940
[2025-07-12] MEDS: BENADRYL 25 MG PO (11:31)
[2025-07-12] MEDS: TYLENOL 650 MG PO (11:31)
--- NOTE | 2025-07-12 12:08 | CM ---
CM reviewed chart, patient seen bedside, denies needs from CM at this time, reports she may be discharged today. CM will continue to follow for all discharge planning needs.
Plan; home no needs when stable
[2025-07-12 12:12] VITALS: BP 105/69
[2025-07-12 12:50] LABS: Lipase 53 U/L (23-300)
[2025-07-12 16:00] VITALS: BP 120/60
[2025-07-12] MEDS: LOVENOX SC (17:11)
[2025-07-12 19:50] VITALS: BP 108/65
[2025-07-12 23:08] VITALS: BP 103/54
[2025-07-13 03:16] VITALS: BP 108/69
[2025-07-13] MEDS: ZOSYN 50 IV ×2 (06:17→11:11)
[2025-07-13 07:10] VITALS: BP 118/68
[2025-07-13] MEDS: NORVASC 5 MG PO (07:29)
[2025-07-13] MEDS: VISBIOME 1 CAP PO (07:29)
[2025-07-13] MEDS: THERAGRAN 1 TABLET PO (07:29)
[2025-07-13] MEDS: VITAMIN D3 (cholecalciferol) 25 MCG PO (07:29)
[2025-07-13] MEDS: COZAAR 25 MG PO (07:30)
[2025-07-13 08:36] LABS: Hematocrit 34.3 % (37.0-47.0); Hemoglobin 11.0 g/dL (12.0-16.0); Mean Corp Hgb Conc. 32.1 g/dL (33.0-37.0); Mean Corpuscular Volume 87.5 fL (81.0-99.0); Platelet Count 317 10^3/uL (130-400); Red Cell Dist. Width 13.5 % (11.5-14.5)
[2025-07-13 09:02] LABS: ALT (SGPT) 194 U/L (0-35); AST (SGOT) 81 U/L (14-36); Albumin 3.6 g/dl (3.5-5.0); Alkaline Phosphatase 182 U/L (38-126); Blood Urea Nitrogen 7 mg/dl (7-17); Calcium 8.4 mg/dl (8.4-10.2); Carbon Dioxide 31 mmol/L (22-30); Chloride 106 mmol/L (98-107); Estimated Creatinine Clearance 118 ml/min; Glucose 82 mg/dl (70-99); Potassium 3.4 mmol/L (3.5-5.1); Sodium 142 mmol/L (135-145); Total Protein 6.8 g/dl (6.3-8.2); eGFR > 60.00
--- NOTE | 2025-07-13 10:19 | W.PN.HOSP.TC ---
Today's Communication/Plan
-
Discharge today
Assessment / Plan
Assessment / Plan
Physical Exam
General: Not in acute distress
HEENT: Normocephalic, Moist mucous membranes
Respiratory: Clear to Auscultation Bilaterally
Cardiac: S1/S2 and Regular Rhythm
GI: Soft, Non Distended, Normal Bowel Sounds and Tender (Epigastric tenderness)
Musculoskeletal: No Cyanosis and No Edema
Skin: Warm. Dry.
Neuro: Awake, Alert, Oriented, AO x 3, No Motor Deficits, Nonfocal/grossly intact and Cranial Nerves Intact
Psych: Calm
Assessment/Plan
55 years old female with past medical history of hypertension who came to the emergency room with epigastric pain, numbness, associated with tingling in her feet, similar to previous event when she was having hypokalemia with potassium level of 2.9
and admitted to [facility], initial blood work in the ER showed potassium level of 2.9. Patient was started on IV potassium infusion and tingling improved but she then still complained of epigastric pain, ultrasound abdomen showed distended
gallbladder with cholelithiasis, lipase normal, epigastric pain radiates to the back and upper chest, CT abdomen pelvis was done, showing moderate to severe distended gallbladder, surgery team consulted. Patient denied any recent fever or chills,
admitted to have nausea and vomiting in the ER, no chest pain or shortness of breath.
Epigastric Pain
Cholelithiasis and Severely Distended Gallbladder status post laparoscopic cholecystectomy and Laparoscopic Common Bile Duct Exploration for acute gangrenous cholecystitis, choledocholithiasis and fatty liver disease, on 07/11/25
Radiated to the back.
With ultrasound and CT scan findings showed severely distended gallbladder.
Also ultrasound showed cholelithiasis
Normal LFTs.
Normal lipase. Pancreas unremarkable on CT imaging.
Surgery team consulted.
IV fluids were given.
Surgery with lap jorge and liver biopsy on 07/11/25 -- solid diet tolerated well following the surgery
New Abdominal Pain, bilateral central abdomen on 07/12/25 -- RESOLVED as of 07/13/25 -- suspected residual effects from laparoscopic cholecystectomy procedure
Pain and nausea control
Continue antibiotics perioperatively -- but can stop antibiotics on discharge
Hyperbilirubinemia
High AST
High ALT
High ALP
-Could be transient, post-op lap jorge related
-Improving today
-Confirmed with Dr. Bhatia (surgeon) that patient can be discharged today given improvement in labs and clinical condition
-Okay to continue diet as per my discussion with surgeon
-Recheck CMP outpatient
Hypokalemia
Previously replaced
Hold HCTZ
Continue to monitor
Patient stated to me on 07/13/25 that she has potassium medication at home and will continue to take those
I emphasized to the patient on 07/13/25 the importance of close follow-up with patient's primary care provider
Essential hypertension
Blood pressure is normal post-op
Continue current antihypertensive regimen
Hold hydrochlorothiazide
Continue losartan.
Amlodipine
CODE STATUS: Full code
DVT prophylaxis: Lovenox
Diet: Cardiac diet.
On 07/13/25, I updated patient's in the presence of the patient, and I answered all of patient's 's and patient's concerns to satisfaction.
More than 30 minutes spent in discharge including
Final examination of the patient
Summarizing hospital stay
Instructions for continuing care to all relevant caregivers
Preparation of discharge records, prescriptions, and referral forms
Total time spent (in minutes): 38
Anticipated Discharge: Today
Subjective/Interval History
-
Date of Service: July 13, 2025
Patient was seen and examined. She reported that her abdominal discomfort has improved, she denied any fever, chills, chest pain or shortness of breath. She is tolerating her diet well.
Objective Data
-
Labs:
Laboratory Results
07/13/25
06:42
WBC 6.6
Hgb 11.0 L
Hct 34.3 L
Plt Count 317
Sodium 142
Potassium 3.4 L
Chloride 106
Carbon Dioxide 31 H
BUN 7
Creatinine 0.7
Glucose 82
Calcium 8.4
Total Bilirubin 1.3 D
AST 81 H
ALT 194 H
Alkaline Phosphatase 182 H
Vital Signs:
Vital Signs
Temp Pulse Resp BP Pulse Ox
98.3 F 66 16 118/68 99
07/13/25 07:10 07/13/25 07:10 07/13/25 07:10 07/13/25 07:10 07/13/25 07:10
I&O
07/12/25 07/13/25 07/14/25
06:59 06:59 06:59
Intake Total 940 / 940 1680 / 1680
Balance 940 / 940 1680 / 1680
[2025-07-13 10:54] LABS: Magnesium 2.2 mg/dl (1.6-2.3)
[2025-07-13] MEDS: KLOR-CON 20 MEQ PO (11:11)
[2025-07-13 11:15] VITALS: BP 119/66
--- NOTE | 2025-07-13 11:36 | CM ---
CM reviewed chart, patient seen bedside, likely for discharge today. Patient denies needs, confirms transportation home. CM will continue to follow for all discharge planning.
Plan; home no needs
--- NOTE | 2025-07-13 14:24 | W.DCSUMMARY ---
Discharge Summary
Discharge Data
Date of Admission: 07/10/25
Date of Discharge: 07/13/25
Total time spent discharging patient (in min): 38
-
Pending Results: Yes
Additional Pending Results:
Biopsy results from surgery during 07/10/25 to 07/13/25 hospitalization
Hospital Course
55 year old with past medical history of asthma and hypertension who presented with epigastric pain, nausea, vomiting, numbness, associated with tingling in her feet, similar to a previous event when she was having hypokalemia with potassium level
of 2.9 and admitted to [facility], initial blood work in the ER showed serum potassium level of 2.9. Patient was started on intravenous potassium infusion and tingling improved but still complained of epigastric pain, ultrasound abdomen
showed distended gallbladder with cholelithiasis, lipase normal, epigastric pain radiating to the back and upper chest, CT abdomen pelvis done which showed moderate to severe distended gallbladder, normal pancreas, and surgery team was consulted.
Once moderate hypokalemia was corrected, patient was ready for surgery. On 07/11/25, patient had laparoscopic cholecystectomy with cholangiogram, laparoscopic transcystic common bile duct exploration and liver biopsy, for gangrenous cholecystitis,
choledocholithiasis and fatty liver disease. Patient was continued on antibiotics during the hospitalization but did not need antibiotics on discharge. The day after the surgery, on 07/12/25, patient had new abdominal pain and new
AST/ALT/Bilirubin/ALP elevation, thought to be from the surgery. The next day her abdominal pain and labs improved. Lipase remained normal and pancreatitis was determined to be unlikely. Surgery team was in agreement with discharge.
Discharge Plan
-
Patient Disposition: Home (Routine Discharge)
Discharge Diagnosis/Procedures: Hypokalemia
Gangrenous cholecystitis, choledocholithiasis
Epigastric Pain
Cholelithiasis and Severely Distended Gallbladder status post laparoscopic cholecystectomy and Laparoscopic Common Bile Duct Exploration for acute gangrenous cholecystitis, choledocholithiasis and fatty liver disease, on 07/11/25
Hyperbilirubinemia
High AST
High ALT
High ALP
Essential hypertension
Condition: Good
Diet: As tolerated and Low Fat
Activity: No strenuous activity
Bathing Restrictions: OK to Shower
Blood Work: CBC, CMP, Albumin, Magnesium and Phosphorus with your outpatient primary care provider in 2 to 3 days
Activity Restrictions/Additional Instructions:
Instructions following Laparoscopic cholecystectomy
Please call [phone] if you have any questions or concerns after your surgery.
Wound Care:
Your incisions are covered with skin glue which will come off on it�s own in 5-10 days.
It is ok to shower the day after your surgery. Do not scrub the incisions, let soap and water wash over them and pat dry.
� Bruising around your incisions is normal.
� Using ice packs will help minimize this swelling.
� No swimming or soaking incisions for 1 week.
� Your stitches will dissolve and do not need to be removed.
Urinary retention:
If you are unable to urinate 6-8 hours after your surgery, please call [phone] to discuss further management.
Activity:
No heavy lifting more than 15 pounds for the next 3 weeks, then you may gradually lift heavier objects as tolerated by discomfort. Otherwise activity as tolerated by your comfort level.
Pain Management:
Use Tylenol, ibuprofen and ice packs to treat your pain.
� You may take 650 milligrams of Tylenol (Max 3 grams per day) every 6 hours, and 600 mg of ibuprofen also every 6 hours. (you can alternate them every 3 hours)
� You may use an ice pack to your incision as needed.
� If you still have pain not controlled by these measures, take your prescription pain medication as prescribed.
Medications:
You may resume your home medications.
Bowel Medications:
Prescription pain medication can make you constipated. If you take this medication, also take colace 100 mg twice daily (this is over the counter). If this is not sufficient, you may take Miralax (polyethylene glycol) to help move your bowels.
Diet:
After your procedure, there are no dietary restrictions. You may notice loose stools for up to 4 weeks after surgery with fatty meals, if this is the case you may have to adjust your diet as needed.
Driving restrictions:
No driving if you are taking prescription pain medication or if you think your normal reaction time and attentiveness has been slowed by your surgery.
Things to Look out for:
Worsening Abdominal pain, redness or drainage from incision
Call Doctor for:
Please call if you notice worsening redness or drainage from incision(s) lasting longer than 5 days after your surgery, any foul-smelling drainage from the incision, pain not controlled by pain medications, persistent nausea and vomiting, or for any
fevers greater than 101.3 F. The number for questions/concerns is [phone]
Follow-up:
Follow-up appointment will be scheduled with your surgeon in 3-4 weeks. Please call prior to your appointment if you have any questions or concerns. [phone]
Referrals:
Dale Bhatia MD [Active, Surgical] - in two to four weeks
Loren Barksdale PA-C [Family Provider, General] - in less than 1 week
Referral Note: Hospitalization and laparoscopic cholecystectomy follow-up. Will need repeat labwork
Additional Discharge Medication Instructions: Amlodipine is a new medication for blood pressure.
As needed Ibuprofen and and as needed Tramadol you can take for pain.
Hydrochlorothiazide is on hold given hypokalemia -- discuss this with your primary care provider.
Prescriptions:
New
tramadol 50 mg tablet
25 mg PO Q6HPRN PRN (Reason: severe pain/breakthrough pain) Qty: 8 0RF
ibuprofen 600 mg tablet
600 mg PO Q6H PRN (Reason: pain) Qty: 14 0RF
amlodipine 5 mg Tablet
5 mg PO DAILY Qty: 30 0RF
Continued
losartan 25 mg Tablet
25 mg PO DAILY
cholecalciferol (vitamin D3) [Vitamin D3] 25 mcg (1,000 unit) Capsule
25 mcg PO DAILY
Zepbound 12.5 mg/0.5 mL Pen Injector
12.5 mg SC WE
therapeutic multivitamin Tablet
1 tab PO DAILY
acetaminophen 500 mg Tablet
1,000 mg PO DAILYPRN PRN (Reason: mild pain)
Visbiome 112.5 billion cell Capsule
1 cap PO DAILY
potassium gluconate 600 mg (99 mg) Tablet
600 mg PO DAILY
Held
hydrochlorothiazide 25 mg Tablet
25 mg PO DAILY
Hold Instructions: Resume on 08/17/25. Discuss with your primary care provider regarding if, and when, to resume this medication.
Discharge Orders:
Discharge Patient (As Directed); Ordered 07/13/25
Ordered By: Robson Snell
Discharge Date and Time
Discharge Date/Time: 07/13/25 16:07
Print Language: [place]
[2025-07-13 14:55] VITALS: BP 118/69
== END 2025-07-13 16:07 | disposition home or self-care (01) | DRG 413 ==
LOC: 4 WEST ACU 13:55
PROVIDERS: Radiology Diagnostic Radiology; Student in an Organized Health Care Education/Training Program; Surgery; ADMITTING PHYSICIAN General Practice; ATTENDING PHYSICIAN Hospitalist; CONSULT PHYSICIAN Surgery; EMERGENCY PHYSICIAN Emergency Medicine; FAMILY PHYSICIAN Physician Assistant Medical
PROC: 0FB24ZX Excision of Left Lobe Liver, Percutaneous Endoscopic Approach, Diagnostic (ICD-10-PCS; 2025-07-12)
PROC: 0FT44ZZ Resection of Gallbladder, Percutaneous Endoscopic Approach (ICD-10-PCS; 2025-07-12)
PROC: 0FJB4ZZ Inspection of Hepatobiliary Duct, Percutaneous Endoscopic Approach (ICD-10-PCS; 2025-07-12)
PROC: BF502Z0 Other Imaging of Bile Ducts using Fluorescing Agent, Intraoperative (ICD-10-PCS; 2025-07-12)
DX: K80.63 Calculus of gallbladder and bile duct with acute cholecystitis with obstruction (principal); E66.9 Obesity, unspecified; E87.6 Hypokalemia; G62.9 Polyneuropathy, unspecified; I10 Essential (primary) hypertension; J45.909 Unspecified asthma, uncomplicated; K59.00 Constipation, unspecified; K76.0 Fatty (change of) liver, not elsewhere classified; K82.A1 Gangrene of gallbladder in cholecystitis; M79.7 Fibromyalgia; Z79.899 Other long term (current) drug therapy; Z88.1 Allergy status to other antibiotic agents; Z91.041 Radiographic dye allergy status; Z68.35 Body mass index [BMI] 35.0-35.9, adult
CPT/HCPCS: 74177; 74300; 76000; 76700; 80048; 80053; 81003; 81015; 83690; 83735; 84484; 85025; 85027; 87086; 88304; 88307; 88313; 93005; 96365; 96366; 96375; 99285; A4300; J1610; Q9967

== ENCOUNTER → 2025-08-19 12:17 | Outpatient (REF) | payer OTHER, SELFPAY ==
[2025-08-19 12:52] LABS: Hematocrit 34.8 % (37.0-47.0); Hemoglobin 11.4 g/dL (12.0-16.0); Mean Corp Hgb Conc. 32.8 g/dL (33.0-37.0); Mean Corpuscular Volume 84.1 fL (81.0-99.0); Nucleated Red Blood Cells % 0 %; Platelet Count 319 10^3/uL (130-400); Red Cell Dist. Width 12.8 % (11.5-14.5)
[2025-08-19 13:21] LABS: ALT (SGPT) 12 U/L (0-35); AST (SGOT) 18 U/L (14-36); Albumin 4.3 g/dl (3.5-5.0); Alkaline Phosphatase 71 U/L (38-126); Blood Urea Nitrogen 5 mg/dl (7-17); Calcium 9.6 mg/dl (8.4-10.2); Carbon Dioxide 29 mmol/L (22-30); Chloride 105 mmol/L (98-107); Glucose 130 mg/dl (70-99); Potassium 3.9 mmol/L (3.5-5.1); Sodium 141 mmol/L (135-145); Total Protein 7.8 g/dl (6.3-8.2); eGFR > 60.00
== END ==
LOC: REG 12:17
PROVIDERS: ATTENDING PHYSICIAN Surgery; FAMILY PHYSICIAN Physician Assistant Medical
DX: Z90.49 Acquired absence of other specified parts of digestive tract (principal); R10.11 Right upper quadrant pain; R19.7 Diarrhea, unspecified
CPT/HCPCS: 36415; 80053; 85025

== ENCOUNTER → 2025-08-23 19:50 | Outpatient (REF) | payer OTHER, SELFPAY | LOC: PAVMRI 19:50 | PROVIDERS: ATTENDING PHYSICIAN Surgery; FAMILY PHYSICIAN Physician Assistant Medical | DX: Z90.49 Acquired absence of other specified parts of digestive tract (principal); R10.11 Right upper quadrant pain; R19.7 Diarrhea, unspecified | CPT/HCPCS: 74181 ==